=== PATIENT | male | born 1955 | race Caucasian/White ===

== ENCOUNTER 2023-07-16 09:58 | Outpatient (CLI) | payer MEDICARE, OTHER | END 2023-07-16 09:59 | disposition home or self-care (01) | LOC: LABBT 09:58 | PROVIDERS: ATTEND Orthopaedic Surgery | DX: Z01.818 Encounter for other preprocedural examination (principal); M17.12 Unilateral primary osteoarthritis, left knee | CPT/HCPCS: 71046; 93005; 93010 ==

== ENCOUNTER 2024-03-15 09:11 | Outpatient (CLI) | payer MEDICARE, OTHER | END 2024-03-15 09:12 | disposition home or self-care (01) | LOC: CT 09:11 | PROVIDERS: ATTEND Orthopaedic Surgery | DX: M17.32 Unilateral post-traumatic osteoarthritis, left knee (principal); N40.0 Benign prostatic hyperplasia without lower urinary tract symptoms; N32.89 Other specified disorders of bladder; M16.12 Unilateral primary osteoarthritis, left hip; I70.90 Unspecified atherosclerosis; M11.262 Other chondrocalcinosis, left knee ==

== ENCOUNTER 2024-03-17 10:54 | Outpatient (CLI) | payer MEDICARE, OTHER ==
[2024-03-17 12:11] LABS: #Basophils 0.05 10x3/uL (0.0-0.2); %Basophils 0.7 % (0.0-1.0); %Eosinophils 3.5 % (0.0-10.0); %Lymphocytes 18.1 % (21.0-51.0); %Monocytes 8.8 % (0.0-10.0); %Neutrophils 68.6 % (42.0-75.0); Hematocrit 39.4 % (42.0-52.0); Hemoglobin 12.8 g/dL (14.0-18.0); Mean Corpuscular HGB CONC 32.5 g/dL (32.0-36.0); Mean Corpuscular Hemoglobin 32.9 pg (27.0-31.0); Mean Corpuscular Volume 101.3 fL (78.0-98.0); Platelet Count 264 10x3/uL (130-400); RBC Distribution Width 12.5 % (11.5-14.5); Red Blood Cell (RBC) Count 3.89 mill/uL (4.70-6.10)
[2024-03-17 12:25] LABS: INR-International Normal Ratio 0.9; Prothrombin Time 12.5 sec (12.0-14.7)
[2024-03-17 12:38] LABS: Bilirubin Negative (Negative); Blood, Urine Negative (Negative); Clarity Clear (Clear); Glucose, Urine (Dipstick) Normal (Negative); Ketone, Urine Negative (Negative); Leukocyte Negative Leu/uL (Negative); Nitrite Negative (Negative); Protein, Urine (Dipstick) Negative (Neg-Trace); Specific Gravity, Urine 1.023 (1.002-1.036); Urobilinogen Normal mg/dL (Less than 2)
[2024-03-17 13:39] LABS: Calc. Creatinine Clearance 0 mL/min (70-130); Estimated GFR 78
[2024-03-17 14:17] LABS: Anion Gap 12 mmol/L (10-20); BUN (Urea Nitrogen) 19 mg/dL (8.4-25.7); Calcium 9.8 mg/dL (7.6-10.4); Carbon Dioxide 25 mmol/L (23-31); Chloride 107 mmol/L (98-107); Glucose 101 mg/dL (80-115); Potassium 3.7 mmol/L (3.5-5.1); Sodium 140 mmol/L (136-145)
== END 2024-03-17 10:55 | disposition home or self-care (01) ==
LOC: LABBT 10:54
PROVIDERS: ATTEND Orthopaedic Surgery
DX: Z01.818 Encounter for other preprocedural examination (principal); M17.12 Unilateral primary osteoarthritis, left knee
CPT/HCPCS: 71046; 80048; 81003; 85025; 85610; 87081; 93005; 93010

== ENCOUNTER 2024-03-22 06:32 | Observation (INO) | payer MEDICARE, OTHER ==
[2024-03-22] MEDS ORDERED: Tranexamic Acid 1,000 MG/10 ML VIAL ONE ×2 (07:15→12:15)
[2024-03-22] MEDS ORDERED: Vancomycin (BATCH) 300 ML ONE (07:16)
[2024-03-22] MEDS ORDERED: Sodium Chloride 0.9% 100 ML ONE ×2 (07:16→12:15)
[2024-03-22] MEDS ORDERED: Midazolam HCl 2 mg/2 ml Vial ONE (07:30)
[2024-03-22] MEDS ORDERED: Ropivacaine 0.5% HCl/PF (150 MG/30 ML VIAL) ONE (07:30)
[2024-03-22] MEDS ORDERED: fentaNYL 50 mcg/mL 1 mL Vial ONE ×2 (07:30→09:45)
[2024-03-22] MEDS ORDERED: Bupivacaine 0.25% HCL 30 ML VIAL ONE (07:40)
[2024-03-22] MEDS ORDERED: Clindamycin/D5W 600 mg/50 ml Premix Bag ONE (07:52)
[2024-03-22] MEDS ORDERED: fentaNYL PF 100 MCG/2 ML SYRINGE ONE ×2 (08:44→11:03)
[2024-03-22] MEDS ORDERED: PROPOFOL 20 ML ONE (08:44)
[2024-03-22] MEDS ORDERED: Ketorolac Tromethamine 30 MG (1 mL) VIAL ONE (08:47)
[2024-03-22] MEDS ORDERED: Ondansetron PF 4 MG/2 ML Vial ONE (08:47)
[2024-03-22] MEDS ORDERED: Lidocaine 1% PF 5 ML VIAL ONE (08:47)
[2024-03-22] MEDS ORDERED: HYDROcodone/Acetaminophen 10/325 mg Tablet PO PRN (09:15)
[2024-03-22] MEDS ORDERED: Promethazine HCl 25 MG/ML VIAL IM PRN ×2 (09:15→10:24)
[2024-03-22] MEDS ORDERED: Ondansetron PF 4 MG/2 ML Vial IVP PRN ×2 (09:15→10:24)
[2024-03-22] MEDS ORDERED: Ropivacaine 0.2% 550 ML 550 ML NERVE BLCK SCH (09:15)
[2024-03-22] MEDS ORDERED: fentaNYL 50 mcg/mL 1 mL Vial SLOW IVP PRN (09:15)
[2024-03-22] MEDS ORDERED: traMADol HCl 50 MG TAB PO PRN ×2 (09:15)
[2024-03-22] MEDS ORDERED: Sevoflurane 250 ML INH ANEST BOTTLE ONE (09:17)
[2024-03-22] MEDS ORDERED: Acetaminophen 325 MG TAB PO PRN (10:24)
[2024-03-22] MEDS ORDERED: diphenhydrAMINE 25 MG CAP PO PRN (10:24)
[2024-03-22] MEDS ORDERED: Zolpidem Tartrate 5 MG TAB PO PRN (10:24)
[2024-03-22] MEDS ORDERED: Tranexamic Acid 1,000 MG in Sodium Chloride 0.9% 100 ML IVPB SCH (10:30)
[2024-03-22] MEDS ORDERED: Non-Formulary Item 1 EACH (Omeprazole [Omeprazole] 20 MG Capsule.Dr) PO SCH (10:30)
[2024-03-22] MEDS: Pantoprazole 40 MG DR.TAB PO SCH ×2 (13:05→14:30)
[2024-03-22 13:17] VITALS: BMI 29.5
[2024-03-22] MEDS: Ketorolac Tromethamine 30 MG (1 mL) VIAL IVP SCH (14:05)
[2024-03-22] MEDS: Clindamycin/D5W 900 MG in Premix 1 BAG IVPB SCH (14:05)
[2024-03-22] MEDS: Sodium Chloride 0.9% 1,000 ML IV SCH (14:16)
[2024-03-22] MEDS: Vancomycin 1.5 GRAM/300 ML BAG 1.5 GM in Premix 1 BAG IVPB SCH (18:40)
[2024-03-22] MEDS: Senokot S 8.6-50 MG TAB PO SCH (20:38)
[2024-03-22] MEDS: Ferrous Gluconate 324 MG TAB PO SCH (20:39)
[2024-03-22] MEDS: Atorvastatin Calcium 10 MG TAB PO SCH (20:39)
[2024-03-22] MEDS: Aspirin 81 mg Enteric Coated Tablet PO SCH (20:40)
[2024-03-22] MEDS ORDERED: Simvastatin 20 MG TAB PO SCH (21:00)
[2024-03-23] MEDS: Zolpidem Tartrate 5 MG TAB PO PRN (00:23)
[2024-03-23 05:18] LABS: Hematocrit 31.3 % (42.0-52.0); Hemoglobin 10.4 g/dL (14.0-18.0); Mean Corpuscular HGB CONC 33.2 g/dL (32.0-36.0); Mean Corpuscular Hemoglobin 33.4 pg (27.0-31.0); Mean Corpuscular Volume 100.6 fL (78.0-98.0); Mean Platelet Volume 10.8 fL (7.4-10.4); Platelet Count 224 10x3/uL (130-400); RBC Distribution Width 12.4 % (11.5-14.5); Red Blood Cell (RBC) Count 3.11 mill/uL (4.70-6.10)
[2024-03-23] MEDS ORDERED: Non-Formulary Item 1 EACH (Lisinopril/Hydrochlorothiazide [Lisinopril-Hctz 10-12.5 Mg Tab PO SCH (09:00)
[2024-03-23] MEDS ORDERED: Aspirin Chewable 81 MG TAB PO SCH (09:00)
[2024-03-23] MEDS: Lisinopril 10 MG TAB PO SCH (09:53)
[2024-03-23] MEDS: Multivitamin W/ Minerals 1 TAB PO SCH (09:53)
[2024-03-23] MEDS: Hydrochlorothiazide 25 MG TAB PO SCH (09:54)
[2024-03-23 11:37] VITALS: BP 155/71; TEMP 98.1
[2024-03-23] MEDS: HYDROcodone/Acetaminophen 10/325 mg Tablet PO PRN (11:49)
== END 2024-03-23 12:07 | disposition home or self-care (01) ==
LOC: SDC 06:32 → SURG B 12:55 → SDC 15:22 → SURG B 15:22
PROVIDERS: ADMIT Orthopaedic Surgery; ATTEND Orthopaedic Surgery
PROC: 0SRD0JZ Replacement of Left Knee Joint with Synthetic Substitute, Open Approach (ICD-10-PCS; principal; 2024-03-22)
PROC: 3E0T3BZ Introduction of Anesthetic Agent into Peripheral Nerves and Plexi, Percutaneous Approach (ICD-10-PCS; 2024-03-22)
DX: M17.12 Unilateral primary osteoarthritis, left knee (principal); Z88.0 Allergy status to penicillin; Z79.899 Other long term (current) drug therapy
CPT/HCPCS: 0055T; 27447; 64447; 36415; 85027; A4306; C1713; C1776; C1889; J0665; J1885; J2250; J2405; J2704; J2795; J3010; J3370; J3490